=== PATIENT | female | born 1985 | race Hispanic/Latino ===

== ENCOUNTER 2017-12-22 09:37 | Inpatient (IN) | payer BC ==
[2017-12-22 10:09] VITALS: BMI 23.9
[2017-12-22] MEDS: Lactated Ringer's 1,000 ML IV ONE (10:15)
[2017-12-22] MEDS: Lactated Ringer's 1,000 ML IV SCH (11:20)
[2017-12-22 12:08] LABS: BASO % 0.4 % (0.0-2.0); EOS % 0.6 % (0.0-4.0); HEMOGLOBIN 11.8 g/dL (12.0-16.0); LYMPH # 2.2 K/uL (1.0-4.3); LYMPH % 28.2 % (20.0-40.0); MEAN CELL VOLUME 93.2 fl (81.0-99.0); MEAN CORPUSCULAR HEMOGLOBIN 31.9 pg (27.0-31.0); MEAN CORPUSCULAR HGB CONC 34.2 g/dL (33.0-37.0); MEAN PLATELET VOLUME 10.9 fl (7.2-11.7); MONO # 0.6 K/uL (0.0-0.8); MONO % 7.9 % (0.0-10.0); NEUT # 4.9 K/uL (1.8-7.0); NEUT % 62.9 % (50.0-75.0); NRBC % 0.1 % (0.0-0.0); RBC 3.68 Mil/uL (3.80-5.20); RED CELL DISTRIBUTION WIDTH 13.7 % (11.5-14.5); WHITE BLOOD COUNT 7.7 K/uL (4.8-10.8)
--- NOTE | 2017-12-22 13:23 | OBADHP ---
Datetime: 12/22/2017 13:09 Admit Comment, IP Provider: 32 yo G1 at 40 wks for scheduled induction of labor for recently mildly elevated BPs, fetus w/ rt double renal artery Induction started w/ cervidil at 1315 FHT reactive, GBS negative H_P dictated, "[id number]" Extremities - PN: Normal Abdomen - PN: Normal Back - PN: Normal Lungs - PN: Normal Heart - PN: Normal Neurologic - PN: Normal HEENT - PN: Normal General - PN: Normal FHR - Baseline A Provider: 110's Membranes, Provider: Intact Contraction Comments Provider: irritability Vital Signs Provider: Reviewed IP Chief Complaint: Scheduled induction of labor NICHD Variability Prov Fetus A: Moderate 6-25bpm NICHD Accel Fetus A IP Provider: 10X10 FHR Category Provider Fetus A: Category I NICHD Decel Fetus A IP Provider: None Dilatation, Provider: 0 Effacement, Provider: 50 Station, Provider: -3 Genitourinary Exam: Normal DTRs - PN: Normal EGA AdmitDate IP: 40.0 IP Adm Impression: Term, intrauterine IP Admit Plan: Admit to unit; Initiate labor induction protocol
[2017-12-22] MEDS ORDERED: Nalbuphine HCL 10 mg/ml Ampule IVP ONE (22:21)
[2017-12-22] MEDS ORDERED: Promethazine 25 MG in Sodium Chloride 0.9% 50 ML IVPB ONE (22:21)
--- NOTE | 2017-12-23 | HP ---
HISTORY OF PRESENT ILLNESS: This is a 32-year-old G1 at 40 weeks with an EDC of 12/22/2017 by LMP, consistent with ultrasound, who is scheduled for an induction of labor today for a recent history of elevated blood pressures in the office. On 12/10/2017, her blood pressure was 132/88, on 12/17/2017, her blood pressure was 132/93, and on 12/19/2017, her blood pressure was 124/78. The patient is also being induced for some complications noted on the ultrasound. Of note, the fetus has right double renal artery. There was mild bilateral ventriculomegaly, which has since resolved. There is a battledore placenta and an echogenic intracardiac focus. The patient denies any symptoms of preeclampsia. She denies headache, changes in vision, abdominal pain, nausea and vomiting. The patient does report that she passed her mucus plug with some blood in it on Saturday, on 12/20/2017. She has been feeling contractions at night for one week and reports that she felt contractions yesterday during the day. She denies leaking of fluid, vaginal bleeding and reports positive movement. The patient received her care with [facility] with Dr. Garcia. On 11/27/2017, GBS was negative. The patient has received her Tdap on 10/02/2017. PAST MEDICAL HISTORY: Healthy. PAST SURGICAL HISTORY: None. MEDICATIONS: vitamins. ALLERGIES: NO KNOWN DRUG ALLERGIES. FAMILY HISTORY: Noncontributory. SOCIAL HISTORY: The patient denies tobacco or alcohol. No illicit drug use. DIRECTOR BUSINESS MANAGEMENT HISTORY: Menarche at 14. The patient reports that she gets a period of every 1-2 months. She denies STDs and reports a history of an abnormal Pap and had a colpo in 01/2017. PHYSICAL EXAMINATION: VITAL SIGNS: Afebrile, vital signs stable. GENERAL: The patient appears comfortable, lying in bed. HEART: Regular rate and rhythm. CHEST: Lungs clear to auscultation bilaterally. ABDOMEN: Soft and nontender, gravid. EXTREMITIES: Nontender, no edema. GENITALIA: Vaginal exam is closed, long and high. External monitoring: the baseline is in the 110s with moderate variability and positive accelerations. Tocodynamometer: There appears to be irritability on the monitor. LABS: On 05/21/2017, hemoglobin electrophoresis was normal. TSH and free T4 were within normal limits. RPR was nonreactive. Urine culture was negative. Hepatitis B surface antigen was negative. Rubella IgG was positive. Blood type is 0 positive. HIV was nonreactive. On 06/13/2017, Panorama was low risk, male fetus. First trimester screen was within range. On 06/13/2017, Pap smear was negative, HPV, Gonorrhea and Chlamydia were negative. On 07/11/2017 maternal serum AFP was negative. On 10/02/2017, her 1-hour Glucola was elevated at 166. RPR was nonreactive. HIV was nonreactive. On 10/08/2017, she had a 3-hour glucose tolerance test done, fasting was 76, 1-hour was 144, 2-hour was 144, and 3-hour was 102. On 12/10/2017, hemoglobin was 11.7, platelets 271 and on 11/27/2017, GBS was negative. ASSESSMENT AND PLAN: This is a 32-year-old G1 at 40 weeks, today admitted for induction of labor for recently mildly elevated blood pressures in the office as well as some ultrasound findings in the fetus. Of note, it should be noted that the patient became vasovagal after receiving her IV; her blood pressure became very low and she became diaphoretic and was vomiting. She is now feeling better. The plan is that she will have a light breakfast and then the Cervidil will be placed to start the induction. heart tracing is reactive. GBS is negative. Shiraz Christianson MD ADRIANA
--- NOTE | 2017-12-23 01:50 | OBPN ---
Datetime: 12/23/2017 01:42 IP Progress Impression Other: Induction for elevated BP's IP Procedures: Sterile Vag Exam IP Progress Plan: Continue present management Membranes, Provider: Intact Contraction Comments Provider: irregular FHR - Baseline A Provider: 1 IP Progress Note Comment: 32 yo G1 at 40+1 wks for induction of labor for elevated BPs, rt double re nal artery S/p cervidil FHT w/ prolonged deceleration to 80's for 6 minutes Cervidil pulled, pt given facemask oxygen, pt placed in left lateral position Will observe FHT for now before proceeding w/ induction Vital Signs Provider: Reviewed FHR Category Provider Fetus A: Category II NICHD Variability Prov Fetus A: Moderate 6-25bpm Dilatation, Provider: 0 Effacement, Provider: 50 Station, Provider: -3 NICHD Decel Fetus A IP Provider: Prolonged Datetime: 12/22/2017 13:09 NICHD Accel Fetus A IP Provider: 10X10
[2017-12-23] MEDS ORDERED: Nalbuphine 20 mg/ml Inj (1 ml) IVP ONE ×2 (04:55→15:28)
[2017-12-23] MEDS ORDERED: Nalbuphine 20 mg/ml Inj (1 ml) ONE (05:00)
[2017-12-23] MEDS: Lactated Ringer's 1,000 ML IV SCH ×3 (07:30→23:00)
--- NOTE | 2017-12-23 09:24 | OBPN ---
Datetime: 12/23/2017 09:21 IP Informed Consent Obtain: Vaginal Delivery IP Procedures: Sterile Vag Exam IP Progress Plan: Continue present management Membranes, Provider: Ruptured Contraction Comments Provider: Irregular FHR - Baseline A Provider: 120 IP Progress Note Comment: Patient evaluated, feeling uncomfortable but does not want anything for pa in VE=FT/50/-3 [id number] mod carmen, +accels, no decels TOCO = mesfin irregularly A/P 1. Patient examined, still FT, will start Cytotec 50mcg PO q 4 hours 2. CEFM and TOCO 3. Re-evaluate as needed Vital Signs Provider: Reviewed NICHD Accel Fetus A IP Provider: 15X15 NICHD Variability Prov Fetus A: Moderate 6-25bpm Dilatation, Provider: FT Effacement, Provider: 50 Station, Provider: -3
[2017-12-23] MEDS: Lactated Ringer's 1,000 ML IV ONE ×2 (19:35→20:47)
[2017-12-23] MEDS ORDERED: Fentanyl/Bupivacaine HCl 250 ML EPI ONE (19:35)
[2017-12-23] MEDS ORDERED: Oxytocin 30 UNIT 30 UNITS/500 ML BAG IV ONE (20:31)
[2017-12-24] MEDS ORDERED: OXYTOCIN/0.9 % NS 20 UNIT/1,000 ML BAG IV ONE (03:44)
[2017-12-24] MEDS: Lactated Ringer's 1,000 ML IV SCH ×2 (04:00→04:01)
[2017-12-24] MEDS ORDERED: AMPicillin 2 GM in Sodium Chloride 0.9% 100 ML IVPB ONE (05:13)
[2017-12-24] MEDS ORDERED: Gentamicin 80mg/50ml NS 80 MG/50 ML BAG IVPB ONE (06:45)
[2017-12-24] MEDS ORDERED: Benzocaine/Menthol SPRAY TOP PRN (07:44)
[2017-12-24] MEDS ORDERED: Oxycodone/Acetaminophen 5/325 mg Tab PO PRN (07:44)
--- NOTE | 2017-12-24 07:55 | OBDS ---
DELIVERY PERSONNEL Delivery Doctor: Cintia Garcia MD Temperature Regulator Pyrometer: Yarelis Rand RN MATERNAL INFORMATION Delivery Anesthesia: Local; Epidural Medications in Delivery: gentamycin, pitocin, ampicillin, cervidil Estimated Blood Loss (ml): 200 Placenta Cultured: Yes Maternal Complications: Maternal Fever Provider Comments: of live male over intact perineum in DILEEP presentation, followed by teagan rowley and rest of infant, 6lbs 6oz, 9/9, mouth and nose suctioned on mother's chest, cord clamped a nd cut, cord blood obtained, placenta delivered spontaneously, fundus firm, [id number], 2nd degree lac eration repaired with 2-0 vicryl, pt was treated for suspected chorioamnionitis during second stage o f labor. LABOR SUMMARY EDC: 12/22/2017 00:00 No. Babies in Womb: 1 Attempted: No LABOR INFORMATION Reason for Induction: Postterm; Anomalies; Other Reason for Induction Other: double renal artery Onset of Labor: 12/23/2017 22:18 Complete Dilatation: 12/24/2017 04:00 Cervical Ripening Agents: Cytotec @ (Annotations: Cytotec 50 mcg PO) Other Ripening Agents: cervidil Group B Beta Strep: Negative Steroids Given: None Reason Steroids Not Administered: Not Applicable Other Reason Not Administered: not requuired MEMBRANES Membranes Rupture Method: Spontaneous Rupture of Membranes: 12/23/2017 22:18 Length of Rupture (hrs): 8.80 Amniotic Fluid Color: Clear Amniotic Fluid Amount: Small Amniotic Fluid Odor: Normal STAGES OF LABOR Stage 1 hrs: 5 Stage 1 min: 42 Stage 2 hrs: 3 Stage 2 min: 6 Stage 3 hrs: 0 Stage 3 min: 4 Total Time in Labor hrs: 8 Total Time in Labor min: 52 VAGINAL DELIVERY Laceration Extension: Second Degree Laceration Type: Perineal Initial Vag Sponge Count: 10 Final Vag Sponge Count: 10 Initial Vag Sharps Count: 2 Final Vag Sharps Count: 2 Sponge Count Correct: Yes Sharps Count Correct: Yes BABY A INFORMATION Infant Delivery Date/Time: 12/24/2017 07:06 Method of Delivery: Vaginal Born in Route : No : N/A Forceps: N/A Vacuum Extraction: N/A Shoulder Dystocia : No SHOULDER DYSTOCIA BABY A Infant Delivery Date/Time: 12/24/2017 07:06 PRESENTATION/POSITION BABY A Presentation: Cephalic PLACENTA INFORMATION BABY A Placenta Delivery Time : 12/24/2017 07:10 Placenta Method of Delivery: Spontaneous Placenta Status: Delivered SCORES BABY A Heart Rate 1 min: >100 bpm Reflex Irritability 1 min: Cough or Sneeze or Pulls Away Muscle Tone 1 min: Active Motion Color 1 min: Body [place], Extremities Blue Resuscitation Effort 1 min: Tactile Stimulation Heart Rate 5 min: >100 bpm Resp Effort 5 min: Good Cry Reflex Irritability 5 min: Cough or Sneeze or Pulls Away Muscle Tone 5 min: Active Motion Color 5 min: Body [place], Extremities Blue Resuscitation Effort 5 min: N/A SCORE 5 MIN: 9 INFANT INFORMATION BABY A Gestational Age at Delivery: 40.2 Gestational Status: Term Infant Outcome : Liveborn Infant Condition : Stable Infant Sex: Male IDENTIFICATION/MEDS BABY A ID Band Number: [id number] WEIGHT/LENGTH BABY A Infant Birthweight (gms): 2900 Infant Weight (lb): 6 Infant Weight (oz): 6 CORD INFORMATION BABY A No. Cord Vessels: 3 Nuchal Cord : N/A Cord Blood Taken: Yes Infant Suction: None
[2017-12-24] MEDS ORDERED: OXYTOCIN/0.9 % NS 20 UNIT/1,000 ML BAG IV SCH (08:15)
[2017-12-24] MEDS: Multivitamin With Minerals Tab PO SCH (18:40)
[2017-12-24] MEDS: Oxycodone/Acetaminophen 5/325 mg Tab PO PRN (23:05)
[2017-12-25] MEDS: Oxycodone/Acetaminophen 5/325 mg Tab PO PRN ×3 (03:23→18:21)
[2017-12-25] MEDS: Multivitamin With Minerals Tab PO SCH (08:57)
[2017-12-25 13:45] LABS: HEMOGLOBIN 10.3 g/dL (12.0-16.0); MEAN CELL VOLUME 95.3 fl (81.0-99.0); MEAN CORPUSCULAR HGB CONC 33.6 g/dL (33.0-37.0); RBC 3.23 Mil/uL (3.80-5.20); RED CELL DISTRIBUTION WIDTH 14.1 % (11.5-14.5)
[2017-12-25 13:49] LABS: WHITE BLOOD COUNT 19.6 K/uL (4.8-10.8)
--- NOTE | 2017-12-25 13:57 | OBPPN ---
Datetime: 12/25/2017 13:31 PP Pain Prov: Within normal limits PP Nausea Prov: Denies PP Flatus Prov: Yes PP BM Prov: No PP Heart Prov: Normal PP Lungs Prov: Normal PP Abdomen/Uterus Prov: Normal PP Extremities Prov: Normal PP Progress Prov: Normal PP Impression Prov: Normal progression PP Progress Note Prov: s: no c/o. perineal pain controlled w/ meds. denies h/a, scotomata, ruq/midep ig pain. denies blurred va i: ppd1 doing well s/p induciton w/ gest htn elev pp bps p: cbc and cmp today consider d/c of motrin to se of elev bp pending lab results today. IP PP Procedures: None Vital Signs Provider PP: Reviewed Vital Signs Provider Details PP: [id number] (Annotations: Data stored by CPN on behalf of user)
[2017-12-25 14:17] LABS: ALB/GLOB RATIO 0.9 (1.0-2.1); ALBUMIN 2.6 g/dL (3.5-5.0); ALT/SGPT 31 U/L (9-52); AST/SGOT 65 U/L (14-36); BLOOD UREA NITROGEN 8 mg/dl (7-17); GFR NON-AFRICAN AMERICAN > 60
[2017-12-25] MEDS ORDERED: Docusate-Senna 50 mg-8.6 mg Tab PO SCH (22:00)
[2017-12-26] MEDS: Oxycodone/Acetaminophen 5/325 mg Tab PO PRN ×2 (05:16→09:58)
[2017-12-26] MEDS: Multivitamin With Minerals Tab PO SCH (08:24)
[2017-12-26 22:40] VITALS: BP 132/82; PULSE 82; RESP 20; TEMP 98.1; O2SAT 100
--- NOTE | 2017-12-27 08:57 | OBPPN ---
Datetime: 12/26/2017 08:55 PP Pain Prov: Within normal limits PP Nausea Prov: Denies PP Flatus Prov: Yes PP Breasts Prov: Normal PP Heart Prov: Normal PP Lungs Prov: Normal PP Abdomen/Uterus Prov: Normal PP Lochia Prov: Normal PP Vulva/Perineum Prov: Normal PP CVA Tenderness Prov: Normal PP Extremities Prov: Normal PP C/S Incision Prov: Not Applicable PP Progress Prov: Normal PP Comments Phys Exam Prov: Abdomen soft, nontender, nondistended. Uterus firm, below umbilicus No deep calf tenderness bilaterally PP Impression Prov: Normal progression PP Plan Prov: Discharge PP Progress Note Prov: day #2 status post , patient recovering well. Patient discharged to home precautions Follow-up in office in 6 weeks IP PP Procedures: None Vital Signs Provider PP: Reviewed; Within Normal Limits
--- NOTE | 2017-12-27 09:00 | OBDCSUM ---
Datetime: 12/26/2017 11:06 Discharge Instructions, Provider: Routine instructions given Discharge Diagnosis, Provider: Term Delivered Discharge Time: 12/26/2017 08:57 Disch Referrals: None Contraception discussed, Prov: Yes
== END 2017-12-26 18:39 | disposition home or self-care (01) | DRG 774 ==
LOC: H.L&D 10:09 → H.OB/GYN 12-24 10:50
PROVIDERS: ADMIT Obstetrics & Gynecology; ATTEND Obstetrics & Gynecology
PROC: 4A1HXCZ Monitoring of Products of Conception, Cardiac Rate, External Approach (ICD-10-PCS; 2017-12-22)
PROC: 10E0XZZ Delivery of Products of Conception, External Approach (ICD-10-PCS; principal; 2017-12-24)
PROC: 0KQM0ZZ Repair Perineum Muscle, Open Approach (ICD-10-PCS; 2017-12-24)
DX: O48.0 Post-term pregnancy (principal); O75.2 Pyrexia during labor, not elsewhere classified; O13.4 Gestational [pregnancy-induced] hypertension without significant proteinuria, complicating childbirth; O76 Abnormality in fetal heart rate and rhythm complicating labor and delivery; O70.1 Second degree perineal laceration during delivery; Z37.0 Single live birth; Z3A.40 40 weeks gestation of pregnancy